=== PATIENT | male | born 1960 ===

== ENCOUNTER 2018-06-04 06:21 | Day surgery (SDC) | payer OTHER ==
[2018-06-04] VITALS (8 sets, daily range): BP systolic 121–150; BP diastolic 77–90
[~2018-06-04] VITALS: Ht 180.3 cm; Wt 99.8 kg
[2018-06-04] MEDS ORDERED: LR 1000ml 1,000 ML IVLG SCH ×2 (06:46→07:00)
--- NOTE | 2018-06-04 06:52 | Anethesia Preoperative Eval ---
Anesthesia Pre-op PMH/ROS General Date of Evaluation: Jun 04, 2018 Time of Evaluation: 06:47 Anesthesiologist: adilson ASA Score: ASA 3 Mallampati Score Class I : Soft palate, uvula, fauces, pillars visible Class II: Soft palate, uvula, fauces visible Class III: Soft palate, base of uvula visible Class IV: Only hard plate visible Mallampati Classification: Class II Surgeon: loren Diagnosis: gerd Surgical Procedure: egd Anesthesia History: none Social History: smoking - nonsmoker Family History: no anesthesia problems Allergies: Coded Allergies: No Known Allergies (Unverified , 06/03/18) Medications: see eMAR Patient NPO?: Yes Past Medical History Cardiovascular: Reports: HTN Pulmonary: Reports: YANDY Gastrointestinal/Genitourinary: Reports: GERD Other: obesity PSxH Narrative: tonsillectomy Anesthesia Pre-op Phys. Exam Physician Exam Last Vital Signs Date Time Temp Pulse Resp B/P (MAP) Pulse Ox O2 Delivery O2 Flow Rate FiO2 06/04/18 06:53 Room Air 06/04/18 06:48 96.8 59 18 150/90 97 Constitutional: NAD Neurologic: CN 2-12 intact Cardiovascular: RRR Respiratory: CTA Gastrointestinal: S/NT/ND Airway Exam Mallampati Score: Class II MO: full Neck: flexible TMD: 2fb ROM: full Teeth: intact Anesthesia Pre-op A/P Risk Assessment & Plan Assessment: asa3 Plan: mac Status Change Before Surgery: No Pre-Antibiotics Drug: Qing Wang MD Jun 04, 2018 06:52
[2018-06-04] MEDS ORDERED: Midazolam 2mg/2ml Inj IVP PRN (07:00)
[2018-06-04] MEDS ORDERED: LOSARTAN POTASS25 MG ORAL (07:00)
[2018-06-04] MEDS ORDERED: DiphenhydrAMINE 50mg/ml Inj IVP PRN (07:00)
[2018-06-04] MEDS ORDERED: Atropine Inj 1mg/10ml Syr IV PRN (07:00)
[2018-06-04] MEDS ORDERED: fentaNYL 100 mcg/2 mL IV PRN (07:00)
[2018-06-04] MEDS ORDERED: LR 1000ml ONE (07:30)
[2018-06-04] MEDS ORDERED: Lidocaine 1% MPF 10mg/ml 5ml ONE (07:30)
[2018-06-04] MEDS ORDERED: Propofol 200mg/20ml IV ONE ×2 (07:30)
--- NOTE | 2018-06-04 07:49 | Short Stay Surgery H&P ---
History of Present Illness History of Present Illness Chief Complaint Abdominal pains/GERDs HPI Boom Olivera is a 58 year old male who was admitted on for GERDS/abdominal pains Patient History Allergies: Coded Allergies: No Known Allergies (Unverified , 06/03/18) PAST MEDICAL HISTORY: (1) Hypertension (2) Sleep apnea (3) Hx of tonsillectomy (4) Hx of vasectomy Medication History Scheduled Losartan Potassium* (Losartan Potassium*), 25 MG ORAL DAILY, (Reported) Review of Systems Cardiovascular: Reports: no symptoms Respiratory: Reports: no symptoms Skeletal: Reports: trauma Gastrointestinal: Reports: gastro esophageal reflux disease Genitourinary: Reports: no symptoms Neurologic: Reports: no symptoms Endocrine: Reports: no symptoms Hematologic: Reports: no symptoms Physical Exam Vital Signs Last Vital Signs Date Time Temp Pulse Resp B/P (MAP) Pulse Ox O2 Delivery O2 Flow Rate FiO2 06/04/18 06:53 Room Air 06/04/18 06:48 96.8 59 18 150/90 97 Skin: normal HENT: normal Heart: normal Lungs: normal Abdomen: normal Extremities: normal Genitourinary: normal Plan Plan of Care Upper GI endoscopy and biopsy Preop Interventions None Summary of Findings See the reports Attestation Are the patient's medical conditions optimized for surgery? Attestation Response: yes Gagan Pizarro MD Jun 04, 2018 07:49
--- NOTE | 2018-06-04 07:49 | Pre-Procedure Note/Attestation ---
Pre-Procedure Note/Attestation Complete Prior to Procedure Planned Procedure: left Procedure Narrative: Endoscopic examination of the upper GI tract with biopsy Indications for Procedure Pre-Operative Diagnosis: R/O Peptic ulcer/gastritis/esophagitis. Attestation I attest that I discussed the nature of the procedure; its benefits; risks and complications; and alternatives (and the risks and benefits of such alternatives ), prior to the procedure, with the patient (or the patient's legal commissary representative). I attest that, if there was a reasonable possibility of needing a blood transfusion, the patient (or the patient's legal commissary representative) was given the [place] Department [employer] standardized written summary, pursuant to the Rehan August Blood Safety Act ([place] Health and Safety Code # 1645, as amended). I attest that I re-evaluated the patient just prior to the surgery and that there has been no change in the patient's H&P, except as documented below: Gagan Pizarro MD Jun 04, 2018 07:49
--- NOTE | 2018-06-04 08:02 | Endoscopy Procedure Note ---
Endoscopy Procedure Note General Indication for Procedure: Abdominal pains and heratburn Procedures Performed: EGD - Normal upper GI endoscopy with mild erosion of lower esophagus at GE junction consistent with GERDS. Biopsies obtained from gastric body and GE junction Specimen: yes Pt Tolerated Procedure Well: Yes Estimated Blood Loss: none Anesthesia Anesthesiologist: Dr. Lewis Anesthesia: moderate sedation Medications Medication Given: see anesthesia record Inserted Devices Implant(s) used?: No Quality Quality of Bowel Preparation: Excellent Was there any complications?: No GI Core Measures 50 yrs or older w/o bx or poly: Not Applicable 10yrs. F/U not recommended: Not Applicable If not recommended, why?: Med reason:<3 yrs.: System Reason:<3 yrs.: Gagan Pizarro MD Jun 04, 2018 08:02
--- NOTE | 2018-06-04 08:03 | Discharge Instructions ---
Discharge Instructions Discharge Instructions Follow up with: Make appointment to see the doctor after 2 weeks For Congestive Heart Failure Reminder Report to your physician any weight gain of 5 pounds or more in one week. Gagan Pizarro MD Jun 04, 2018 08:03
--- NOTE | 2018-06-04 08:22 | 48 Hour Post Anesthesia Eval ---
Post Anesthesia Evaluation Procedure: egd w/bx Date of Evaluation: Jun 04, 2018 Time of Evaluation: 08:22 Blood Pressure Systolic: 138 0: 86 Pulse Rate: 55 Respiratory Rate: 18 Temperature (Fahrenheit): 97.0 O2 Sat by Pulse Oximetry: 98 Airway: patent Nausea: No Vomiting: No Pain Intensity: 0 Hydration Status: adequate Cardiopulmonary Status: stable Mental Status/LOC: patient returned to baseline Post-Anesthesia Complications: none Follow-up care needed: N/A Qing Dominguez MD Jun 04, 2018 08:22
--- NOTE | 2018-06-04 08:22 | Immediate Post-Op Evaluation ---
Immediate Post-Op Evalulation Immediate Post-Op Evalulation Procedure: egd w/bx Date of Evaluation: Jun 04, 2018 Time of Evaluation: 08:20 IV Fluids: 300ml lr Blood Products: none Estimated Blood Loss: negligible Blood Pressure Systolic: 121 Blood Pressure Diastolic: 77 Pulse Rate: 60 Respiratory Rate: 18 O2 Sat by Pulse Oximetry: 98 Temperature (Fahrenheit): 97.0 Pain Score (1-10): 0 Nausea: No Vomiting: No Complications none Patient Status: awake, reacts, patent Hydration Status: adequate Drug: Qing Wang MD Jun 04, 2018 08:22
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
--- NOTE | 2018-06-04 12:30 | Operative Note - Dictated ---
DATE OF OPERATION: 06/04/2018 SURGEON: Gagan Pizarro M.D. PROCEDURE: Esophagogastroduodenoscopy with biopsy. PREOPERATIVE DIAGNOSES: Abdominal pain, history of chronic gastroesophageal reflux, rule out Weems's esophagus and esophagitis. POSTOPERATIVE DIAGNOSIS: A small sliding hiatal hernia and mild erosion at the GE junction consistent with chronic gastroesophageal reflux, otherwise normal upper GI endoscopy. No ulcers or gastritis was seen. Biopsy was taken per random from gastric body and GE junction. MEDICATION USED: Per Dr. Lewis, anesthesiologist. INSTRUMENT: GIF Olympus video upper GI endoscope. DESCRIPTION OF PROCEDURE: The patient after arriving an endoscopy unit, was told about risks and benefits of the procedure, which he accepted and signed informed consent. At this time, he was put on the left lateral decubitus position. After adequate IV sedation, the scope was gently passed through the cricopharyngeal area, was lodged into the upper esophagus and gradually advanced towards gastroesophageal junction. The entire length of esophagus looked normal. No evidence of inflammatory process, ulceration, exudative condition was found. No stricture noted. Upon arriving at the GE junction, there was seen a very mild linear erosion at the GE junction suggesting of chronic gastroesophageal reflux and also small sliding hiatal hernia noted. Upon entering the scope into the stomach, gastric cavity was distended with insufflation of air and gradually the areas of the fundus and the body and the antrum were examined, which all looked normal without any mucosal changes. No evidence of gastritis, ulcers, polyps, tumors, angiodysplasia, etc. One random biopsy from gastric body obtained and subsequently scope was passed through the normal-looking pylorus. First and second portion of duodenum were also found to be completely normal. The scope was then pulled back into the stomach, a retroflexion maneuver was applied. The area of the GE junction was also examined, which did not reveal any other major pathology except as stated earlier. Finally, the scope was pulled out and procedure was terminated. The patient tolerated the procedure well and left the endoscopy room in a good condition. Gagan Pizarro M.D. DR: SOFI JOB#: [id number] CC:
== END 2018-06-04 09:20 | disposition home or self-care (01) ==
LOC: SDS 06:21
DX: K25.9 Gastric ulcer, unspecified as acute or chronic, without hemorrhage or perforation (principal); K44.9 Diaphragmatic hernia without obstruction or gangrene; K21.9 Gastro-esophageal reflux disease without esophagitis; I10 Essential (primary) hypertension; G47.30 Sleep apnea, unspecified; E78.5 Hyperlipidemia, unspecified; E66.9 Obesity, unspecified
CPT/HCPCS: 43239; J0171; J2704; 94003; 94150